=== PATIENT | female | born 1955 | race Caucasian/White ===

== ENCOUNTER 2023-04-21 11:39 | Emergency (ER) | payer BC ==
[~2023-04-21] VITALS: Ht 167.6 cm; Wt 93.4 kg
[2023-04-21 12:31] VITALS: BP 158/76; PULSE 84; RESP 18; O2SAT 98
[2023-04-21] MEDS ORDERED: KETOROLAC 60 MG VIAL (30MG/ML) IM ONE (13:00)
[2023-04-21] MEDS ORDERED: MORPHINE 4 MG SYG IM ONE (13:00)
[2023-04-21] MEDS ORDERED: TRAM50TA4 PO (14:01)
[2023-04-21] MEDS ORDERED: IBUP-2070 PO (14:01)
== END 2023-04-21 14:12 | disposition home or self-care (01) ==
LOC: EDH 11:39
DX: S52.515A Nondisplaced fracture of left radial styloid process, initial encounter for closed fracture (principal); S52.612A Displaced fracture of left ulna styloid process, initial encounter for closed fracture; S05.12XA Contusion of eyeball and orbital tissues, left eye, initial encounter; E78.00 Pure hypercholesterolemia, unspecified; I10 Essential (primary) hypertension; Z90.49 Acquired absence of other specified parts of digestive tract; Z90.710 Acquired absence of both cervix and uterus; Z98.84 Bariatric surgery status; W01.0XXA Fall on same level from slipping, tripping and stumbling without subsequent striking against object, initial encounter; Y92.89 Other specified places as the place of occurrence of the external cause; Y93.01 Activity, walking, marching and hiking; Y99.8 Other external cause status
CPT/HCPCS: 99285; 70450; 73110; 96372 ×2; 70480; J2270; J1885

== ENCOUNTER → 2024-01-31 | Outpatient (CLI) | payer BC ==
[~2024-01-31] MED LIST: IBUP-2070 PO; TRAM50TA4 PO
== END | disposition home or self-care (01) ==
LOC: RAH 12:23
PROVIDERS: ATTEND Internal Medicine
DX: M17.12 Unilateral primary osteoarthritis, left knee (principal)
CPT/HCPCS: 73562

== ENCOUNTER → 2024-02-21 | Outpatient (CLI) | payer OTHER ==
--- NOTE | 2024-02-21 12:07 | HMCIMG ---
CT CORONARY CALCIFICATION SCORING: Anatomic images were reviewed. The calcium score is being generated and reported separately. This report is for the visualized anatomy only. Visualized portions of the lungs are clear. Hilar and mediastinal structures appear normal. Osseous structures are unremarkable. Impression: 1. Negative noncardiac anatomic findings. 2. The calcium score is 320.6 consistent with a moderate degree of calcified plaque. This is 90th percentile for this age patient. CT was performed with one or more following dose reduction techniques: automated exposure control, adjustment of the mA and kv according to patient's size, or use of a iterative reconstruction technique.
== END | disposition home or self-care (01) ==
LOC: RAH 09:49
PROVIDERS: ATTEND Internal Medicine
DX: Z13.6 Encounter for screening for cardiovascular disorders (principal); R93.1 Abnormal findings on diagnostic imaging of heart and coronary circulation; I25.10 Atherosclerotic heart disease of native coronary artery without angina pectoris
CPT/HCPCS: 75571

== ENCOUNTER 2024-10-14 05:53 | Observation (INO) | payer BC, MEDICARE ==
[2024-10-12 10:30] LABS: IMMATURE GRANULOCYTE ABSOLUTE 0.03 K/uL (0-1); NUCLEATED RED BLOOD CELLS 0.0 % (0.0-0.19); PLATELET COUNT (AUTO) 99 K/uL (130-400); RED BLOOD CELL COUNT(AUTO) 3.83 MIL/uL (4.00-5.50); RED CELL DISTRIBUTION WIDTH 12.6 % (11.0-15.5); WHITE BLOOD COUNT (AUTO) 5.0 K/uL (4.8-10.8)
[2024-10-12 10:35] VITALS: BP 144/68; PULSE 59; RESP 13; TEMP 97.4
[2024-10-12 10:39] LABS: CREATININE 0.7 mg/dL (0.5-1.0); GLOMERULAR FILTR. RATE CALC 95.0 mL/min (>90); GLUCOSE,RANDOM 94.0 mg/dL (70-105); SODIUM SERUM 143.0 mmol/L (136-145); UREA NITROGEN, BLOOD 11.0 mg/dL (7-18)
[2024-10-12 10:45] LABS: INR 1.07 (0.85-1.15)
--- NOTE | 2024-10-12 10:50 | NUR ---
RE: IS INITIAL IS INITIAL TEACHING DONE BY RT SAVANNAH DURING PREOP
--- NOTE | 2024-10-12 14:17 | EKG ---
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
--- NOTE | 2024-10-13 11:46 | NUR ---
RE: LABS REPORTED CBC RESULTS TO DR RAE, RECEIVED ORDERS TO TYPE/CROSS 2 UNITS PRBCS FOR PLT OF 99. Addendum: 10/13/24 at 1434 by LIANA HIGH RN RN 2 UNITS PLATELETS NOT RBCS Addendum: 10/13/24 at 1637 by LIANA HIGH RN RN CANCEL/DELETE NOTE
--- NOTE | 2024-10-13 16:12 | NUR ---
RE: LABS REPORTED CBC RESULTS TO DR RAE, RECEIVED ORDERS TO TYPE/CROSS 2 UNITS PRBCS FOR PLT OF 99.
[2024-10-14] VITALS (24 sets, daily range): BP systolic 110–177; BP diastolic 61–91; PULSE 60–78; RESP 14–20; TEMP 96.6–99; O2SAT 96–98
[~2024-10-14] VITALS: Ht 167.6 cm; Wt 91.2 kg
[~2024-10-14 05:53] MED LIST changes: -IBUP-2070 PO; +LOSA50TA64 PO; -TRAM50TA4 PO; +TRAZ-187 PO
[2024-10-14] MEDS: FAMOTIDINE 20MG VIAL IV ONE (06:32)
[2024-10-14] MEDS: GABAPENTIN 300 MG CAPSULE ONE (06:32)
[2024-10-14] MEDS ORDERED: LIDOCAINE PF 100MG/5ML (2%) SYRINGE 5ML ONE (06:53)
[2024-10-14] MEDS: TRANEXAMIC ACID 1000MG/10ML ONE (07:35)
[2024-10-14] MEDS: LACTATED RINGERS 1000ML 1,000 ML IV ONE (07:43)
[2024-10-14] MEDS ORDERED: PoTASSium chl 10% ELIXIR 20MEQ 20 MEQ/15 ML UDCUP PO PRN (08:00)
[2024-10-14] MEDS ORDERED: FERROUS FUMARATE 324 MG TABLET PO PRN (08:00)
[2024-10-14] MEDS: 0.9%NACL 1000ML 1,000 ML IV SCH (08:00)
[2024-10-14] MEDS ORDERED: PoTASSium chloRIDE 20MEQ ER 20 MEQ ERTAB PO PRN (08:00)
[2024-10-14] MEDS ORDERED: CALCIUM CARB 500MG PO PRN (08:00)
[2024-10-14] MEDS ORDERED: HYDROcodone/APAP 5/325 1 TAB TABLET PO PRN (08:00)
[2024-10-14] MEDS ORDERED: GLYCOPYRROLATE 0.2 MG/ML 5 ML VIAL ONE (08:53)
[2024-10-14] MEDS ORDERED: NEOSTIGMINE METHYLSULFATE 1MG/ML IV ONE (08:53)
--- NOTE | 2024-10-14 12:46 | DS ---
Discharge Summary Hospital Course Summary: The patient was admitted to the hospital postoperatively on 10/14/2024 after undergoing left total knee arthroplasty. They did well with routine postoperative pain control. They worked well with physical therapy. They developed some acute blood loss anemia but remained asymptomatic. The hospital course was otherwise uncomplicated. They were subsequently able to be discharged on postoperative day 1 once discharge arrangements were made with home health physical therapy with [facility]. 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 Dressing may be removed 10/16/2024 and left open to air. Showers ok allowing soap and water to run over the wound. Pat dry. Do not submerge wound in tub/pool. Do not apply ointments. Do not apply Betadine. Do not apply peroxide. Ice packs to decrease pain/swelling. Prescriptions have been sent to the pharmacy: *Falls 5/325mg 1-2 tab every 6 hours as needed for severe pain. (please call for refills) Cyclobenzaprine 5mg 1 tab every 8 hours as needed for muscle spasm pain. Gabapentin 100mg 1 tab every 8 hours (may discontinue if drowsy). Colace 100mg 1 tab orally twice a day as needed for constipation. Aspirin 325mg twice a day for 30 days to prevent blood clots. Followup visit scheduled for 11/05/2024 at 10:15 am with [facility]. Home Medications: Active Scripts Hydrocodone/Acetaminophen (Hydrocodon-Acetaminophen 5-325) 5 Mg-325 Mg Tablet, 1-2 TAB PO Q6HPRN PRN for SEVERE PAIN (7-10), #56 TAB 0 Refills Prov:PRIMITIVO RAE MD 10/15/24 Reported Medications Trazodone HCl (Trazodone HCl) 100 Mg Tablet, 100 MG PO HS, TAB 10/12/24 Losartan Potassium (Losartan Potassium) 50 Mg Tablet, 50 MG PO DAILY, TAB 10/12/24 Discontinued Scripts Tramadol Hcl (Tramadol HCl) 50 Mg Tablet, 50 MG PO TIDP PRN for PAIN, #20 TAB 0 Refills Prov:FOUZIA SIDDIQUI MD 04/21/23 Ibuprofen (Ibuprofen) 600 Mg Tablet, 600 MG PO Q6H PRN for PAIN, #40 TAB Prov:FOUZIA SIDDIQUI MD 04/21/23 PRIMITIVO RAE MD Oct 14, 2024 12:46
[2024-10-14] MEDS: HYDROcodone/APAP 5/325 1 TAB TABLET PO PRN ×2 (13:29→22:24)
--- NOTE | 2024-10-14 14:58 | OP ---
Operative Note: DATE OF PROCEDURE: 10/14/24 PREOPERATIVE DIAGNOSIS: Left knee osteoarthritis. POSTOPERATIVE DIAGNOSIS: Left knee osteoarthritis. PROCEDURE PERFORMED: Left knee total knee arthroplasty. SURGEON: Yee Baltazar MD WATER RESOURCE PROJECT MANAGER: Virgil Mantilla and Margaret Justice. ANESTHESIA: General with adductor canal block. ANESTHESIA: JAVA WEB USER INTERFACE DEVELOPER then developed as. ESTIMATED BLOOD LOSS: 50cc. COMPLICATIONS: None. DRAINS: None. SPECIMENS REMOVED: resected bone. Not sent to pathology. IMPLANTS: [employer] Nephew Journey II BCS size 4 Oxinium femur, size 3 tibial base plate, 32 x 7.5 mm patella, 13 mm polyethylene STATEMENT OF MEDICAL NECESSITY: The patient is a 69-year-old female who suffers from left knee osteoarthritis failing conservative management. After discussion of the risks, benefits, and alternatives with the patient, they voluntarily ag edgar to undergo the aforementioned procedure. DESCRIPTION OF PROCEDURE: Patient was properly identified in the preoperative holding area. Surgical site marking was verified and surgery consent reviewed. The patient was then taken to the operating room and placed in supine position on the OR table. After induction of general anesthesia, preoperative antibiotics were given, all bony prominences were well-padded, and a well padded tourniquet was applied but not inflated at this time. The left lower extremity was then prepped and draped in usual sterile fashion. Surgical time out was done verifying correct surgery, side, site, and location to be performed. We then began the procedure by exsanguinating the limb using an Esmarch and inflating the tourniquet to 350 mmHg. At this point, we made an anterior midline incision using a 10 blade, coming down sharply the level of the fascia. Skin flaps were elevated medially and laterally. We then obtained a clean 10 blade and performed a standard medial parapatellar arthrotomy. We excised the infrapatellar fat pad. We performed our soft tissue releases off of the tibia. We transected the ACL and removed the anterior portion of the medial & lateral meniscus. We then brought the knee into hyperflexion with the patella everted. We used our entry reamer to enter the femoral canal. We then placed our intramedullary cutting guide for our distal femoral cutting block. We then performed our distal femoral osteotomy ensuring appropriate rotation and removed the bony wafer. We then removed these pins and block and then used jig 2 to size the distal femur with the after mentioned size found. We then placed our 5-in-1 cutting block in 3 degrees of external rotation and took our 5 cuts ensuring to protect the patellar tendon and the collateral ligaments. We then removed the cutting block and our bony fragments using a curved osteotome. We then placed our PCL retractor subluxating the tibia anteriorly. Using an extra medullary tibial cutting guide, we hung the block for our proximal tibial cut taking 2 mm off the more diseased portion. Prior to pinning this block in place, we ensured appropriate varus/valgus alignment and posterior slope similar to the [place] slope of the patient's knee. We then performed our proximal tibial osteotomy and removed the bony wafer using Bovie electrocautery to release any remaining soft tissue attachments. We then used our tibial sizing paddle and checked once more for varus & valgus alignment and found this to be appropriate. At this point, we pinned our tibial paddle in place. We then removed the PCL retractor and subluxated the tibia posteriorly while we placed our femoral trial component. We then finished preparing the notch with the reamer and box chisel. The notch portion of the trial femoral component was then placed. A posterior stabilized polyethylene, size 9 trial was placed. This was immediately increased up to a size 12 seconds dairy to laxity with varus and valgus stress. The knee was then taken through range of motion and found to have stable full range of motion. We then placed a bump under the ankle and everted the patella to perform our freehand cut of the undersurface the patella. We then sized our patella and reamed to the lug holes for this. We placed our trial patellar component and begin to take the knee through range of motion. The patella had significant lateral tracking so we performed a lateral release. There was still mild lateral tracking and decreased flexion so we elected to use the 7.5 mm thickness patellar component. At this point we began removing our trial components and punched the tibial keel prior to removing our tibial trial component. Final components were opened and cement was mixed on the back table while we injected local cocktail in the posterior capsule. We then thoroughly irrigated out the bone and dried the bony surfaces. We cemented our tibial component in place ensuring to remove excess cement and placed our trial polyethylene. We then cemented our femoral component in place once again taking time to ensure excess cement was removed leg was brought into full extension to help squeeze the excess cement from around the femoral component. We then brought the knee back in a flexion to remove this portion of the cement at this point we placed the ankle in a bump thoroughly irrigated off the patellar component and cemented our patellar component in standard fashion again removing excess cement. While we waited for the cement to cure, we thoroughly irrigated out the wound with normal saline. Once our cement had cured, we took the knee through a range of motion and found full and stable range of motion. We then elected to use the size 13 polyethylene and removed our trial polyethylene. We impacted our final polyethylene component in place in standard fashion and took the knee through a range of motion check once more. This was satisfactory so we began to repair the arthrotomy using #5 Ethibond and #1 Vicryl in interrupted [id number] fashion. Subcutaneous tissue was repaired using 2-0 Vicryl. Running subcuticular 3-0 Monocryl stitch with Dermabond placed over this for the skin. We then applied a foam barrier dressing and a pressure dressing consisting of 4 x 4's fluffs and an Hang wrap. The tourniquet was then deflated. Patient was awakened from anesthesia, and they were taken to the recovery room in stable condition. YEE BALTAZAR MD Oct 14, 2024 14:58
--- NOTE | 2024-10-14 16:15 | NUR ---
Ortho Coordinator: Teaching regarding DVT and pneumonia prevention, pain expectations and pain management. Patient up to chair. B SCD sleeve and machine in room. Incentive spirometer at bedside. Patient return demonstrated proper use of incentive spirometer and foot flexion and extension exercises. Patient able to verbalize frequency of use for incentive spirometer. Pain controlled currently. Encouraged patient to perform self pain assessments every four hours and to provide numeric pain value and type of pain when requesting medicatio. Reviewed pain medication regimen. Patient verbalized understanding. Set expectations for patient to shower tomorrow. Patient verbalized understanding to all instructions. No additional questions or concerns.
--- NOTE | 2024-10-14 16:29 | NUR ---
D/C PLAN CM spoke to patient regarding d/c planning. Patient lives with spouse. Denies having any current home services. States she has a handicapped bathroom with bars and high toilet seat. Reports she has a quad cane for ambulation. Patient states she discussed home health PT with Dr. Baltazar. CM offered in [employer] home health and DME agency choices. CM obtained BETO for any in [facility] home health and DME agencies. Patient declined bedside commode. Requesting DME request for walker be sent to [facility] if they are in network. CM verified with office that they do accept patient's insurance. CM faxed referral to [facility] home health and [facility] for walker. CM to f/u on acceptance. No other needs verbalized. Spouse will be assisting at home when discharged. Addendum: 10/14/24 at 1634 by JORDAN REYES CM Amended: Links added.
[2024-10-14] MEDS: CYCLOBENZAPRINE HCL 10 MG TABLET PO PRN (21:15)
[2024-10-15] VITALS: BP 130/69; PULSE 72; RESP 18; TEMP 98.6
[2024-10-15 04:29] LABS: NUCLEATED RED BLOOD CELLS 0.0 % (0.0-0.19); PLATELET COUNT (AUTO) 83.0 K/uL (130-400); RED BLOOD CELL COUNT(AUTO) 2.98 MIL/uL (4.00-5.50); RED CELL DISTRIBUTION WIDTH 12.5 % (11.0-15.5); WHITE BLOOD COUNT (AUTO) 9.7 K/uL (4.8-10.8)
[2024-10-15 04:47] LABS: CREATININE 0.8 mg/dL (0.5-1.0); GLOMERULAR FILTR. RATE CALC 81.0 mL/min (>90); GLUCOSE,RANDOM 120.0 mg/dL (70-105); SODIUM SERUM 138.0 mmol/L (136-145); UREA NITROGEN, BLOOD 15.0 mg/dL (7-18)
--- NOTE | 2024-10-15 06:38 | NUR ---
CHAIR IN AM PATIENT TRANSFERRED TO CHAIR FOR BREAKFAST. PATIENT TOLERATED TRANSFER WELL. PATIENT DOES NOT COMPLAIN OF PAIN AT THE MOMENT. ICE PACK APPLIED TO LEFT KNEE.
[2024-10-15 08:00] VITALS: BP 161/72; PULSE 72; RESP 18; TEMP 98.6
[2024-10-15 08:06] VITALS: O2SAT 98
--- NOTE | 2024-10-15 08:07 | PN ---
Ortho postop day one. This morning the patient is awake alert and oriented. She is seated outside of bed in a chair resting comfortably alternating her foot on extension and flexion on a footstool. The Hang bandage his already been removed. The dressing is intact to the anterior joint. Ice is currently present to the op-site. The gastrocnemius a soft and nontender. Negative Homans. Reporting adequate pain control. Vital signs have remained stable. Afebrile. Voiding on her own without difficulty. Already passing gas. Laboratory results reviewed. Noted to have a drop in hemoglobin and hematocrit as expected after TKA. Patient currently is asymptomatic. We will continue to observe and address per protocol as necessary. Reinforced incentive spirometry. SCD sleeves currently not on but are present. Ambulated within the confines of her room yesterday with physical therapy and is pending further physical therapy this morning. The anticipated discharge goal for this patient is home health/PT. Assessment: Status post left total knee arthroplasty. Asymptomatic acute postoperative blood loss anemia. Plan: Continue with Dr. Baltazar's TKA protocol and discharge planning. Asymptomatic acute postoperative blood loss anemia addressed per protocol as necessary Vitals/Labs Vital Signs Date Time Temp Pulse Resp B/P (MAP) Pulse Ox O2 Delivery O2 Flow Rate FiO2 10/15/24 00:00 98.6 72 18 130/69 96 Room Air 10/14/24 20:00 0 21 Laboratory Tests 10/15/24 04:19 Medications Current Medications Cefazolin Sodium 2 gm STK-MED ONCE .ROUTE Last administered on 10/14/24at 07:47; Start 10/14/24 at 06:01; Stop 10/14/24 at 06:01; Status DC Lactated Ringer's 1,000 ml @ As Directed STK-MED ONCE IV Last administered on 10/14/24at 07:43; Start 10/14/24 at 06:01; Stop 10/14/24 at 06:02; Status DC Gabapentin 300 mg STK-MED ONCE .ROUTE; Start 10/14/24 at 06:32; Stop 10/14/24 at 06:32; Status DC Acetaminophen 100 ml @ As Directed STK-MED ONCE .ROUTE; Start 10/14/24 at 06:32; Stop 10/14/24 at 06:32; Status DC Famotidine 20 mg STK-MED ONCE IV; Start 10/14/24 at 06:32; Stop 10/14/24 at 06:32; Status DC Ropivacaine 150 mg STK-MED ONCE .ROUTE; Start 10/14/24 at 06:46; Stop 10/14/24 at 06:46; Status DC Ketamine HCl 50 mg STK-MED ONCE .ROUTE; Start 10/14/24 at 06:46; Stop 10/14/24 at 06:47; Status DC Lidocaine HCl 100 mg STK-MED ONCE .ROUTE; Start 10/14/24 at 06:53; Stop 10/14/24 at 06:53; Status DC Propofol 200 mg STK-MED ONCE IV; Start 10/14/24 at 06:53; Stop 10/14/24 at 06:53; Status DC Rocuronium Sundance 50 mg STK-MED ONCE .ROUTE; Start 10/14/24 at 06:53; Stop 10/14/24 at 06:54; Status DC Fentanyl Citrate 100 mcg STK-MED ONCE .ROUTE; Start 10/14/24 at 06:54; Stop 10/14/24 at 06:54; Status DC Tranexamic Acid 1,000 mg STK-MED ONCE .ROUTE Last administered on 10/14/24at 07:35; Start 10/14/24 at 07:14; Stop 10/14/24 at 07:14; Status DC Ketorolac Tromethamine 30 mg STK-MED ONCE .ROUTE Last administered on 10/14/24at 08:30; Start 10/14/24 at 07:25; Stop 10/14/24 at 07:31; Status DC Ropivacaine 150 mg STK-MED ONCE .ROUTE Last administered on 10/14/24at 08:30; Start 10/14/24 at 07:25; Stop 10/14/24 at 07:31; Status DC Ondansetron HCl 4 mg STK-MED ONCE .ROUTE; Start 10/14/24 at 07:35; Stop 10/14/24 at 07:35; Status DC Dexamethasone Sodium Phosphate 10 mg STK-MED ONCE .ROUTE; Start 10/14/24 at 07:35; Stop 10/14/24 at 07:35; Status DC Sodium Chloride 1,000 ml @ 100 mls/hr Q10H IV; Start 10/14/24 at 08:00; Stop 10/15/24 at 07:59; Status DC Polyethylene Glycol 17 gm DAILY PO; Start 10/14/24 at 09:00; Stop 11/13/24 at 08:59 Bisacodyl 10 mg DAILY PRN RC; Start 10/17/24 at 08:00; Stop 11/16/24 at 07:59 Ferrous Fumarate 324 mg DAILY PRN PO; Start 10/14/24 at 08:00; Stop 11/13/24 at 07:59 Ondansetron HCl 4 mg Q6H PRN IVP; Start 10/14/24 at 08:00; Stop 11/13/24 at 07:59 Calcium Carbonate 500 mg Q12H PRN PO; Start 10/14/24 at 08:00; Stop 11/13/24 at 07:59 Diphenhydramine HCl 25 mg Q6H PRN IVP; Start 10/14/24 at 08:00; Stop 11/13/24 at 07:59 Cyclobenzaprine HCl 5 mg Q8H PRN PO Last administered on 10/14/24at 21:15; Start 10/14/24 at 08:00; Stop 11/13/24 at 07:59 Gabapentin 100 mg TID PO Last administered on 10/14/24at 21:11; Start 10/14/24 at 09:00; Stop 11/13/24 at 08:59 Potassium Chloride 100 ml @ 100 mls/hr AD PRN IV; Start 10/14/24 at 08:00; Stop 11/13/24 at 07:59 Potassium Chloride 20 meq AD PRN PO; Start 10/14/24 at 08:00; Stop 11/13/24 at 07:59 Potassium Chloride 20 meq AD PRN PO; Start 10/14/24 at 08:00; Stop 11/13/24 at 07:59 Acetaminophen/ Hydrocodone Bitart Q4H PRN PO; Start 10/14/24 at 08:00; Stop 10/14/24 at 07:53; Status DC Acetaminophen/ Hydrocodone Bitart 1 tab Q4H PRN PO Last administered on 10/14/24at 18:15; Start 10/14/24 at 08:00; Stop 10/19/24 at 07:59 Acetaminophen/ Hydrocodone Bitart 2 tab Q4H PRN PO Last administered on 10/15/24at 07:56; Start 10/14/24 at 08:00; Stop 10/19/24 at 07:59 Rocuronium Sundance 50 mg STK-MED ONCE .ROUTE; Start 10/14/24 at 07:59; Stop 10/14/24 at 08:00; Status DC Dexmedetomidine HCl 200 mcg STK-MED ONCE IV; Start 10/14/24 at 08:06; Stop 10/14/24 at 08:06; Status DC Glycopyrrolate 1 mg STK-MED ONCE .ROUTE; Start 10/14/24 at 08:53; Stop 10/14/24 at 08:54; Status DC Neostigmine Methylsulfate 10 mg STK-MED ONCE IV; Start 10/14/24 at 08:53; Stop 10/14/24 at 08:54; Status DC Fentanyl Citrate 100 mcg STK-MED ONCE .ROUTE Last administered on 10/14/24at 10:19; Start 10/14/24 at 10:16; Stop 10/14/24 at 10:17; Status DC Losartan Potassium 50 mg DAILY PO Last administered on 10/15/24at 07:56; Start 10/15/24 at 09:00; Stop 11/14/24 at 08:59 Trazodone HCl 100 mg HS PO Last administered on 10/14/24at 21:11; Start 10/14/24 at 21:00; Stop 11/13/24 at 20:59 Psyllium Hydrophilic Mucilloid 1 tbs ONCE PO; Start 10/15/24 at 08:30; Stop 11/14/24 at 08:29; Status ALCON SUAZO NP Oct 15, 2024 08:07
--- NOTE | 2024-10-15 08:15 | NUR ---
MEDICATION MIRALAX NOT ADMINISTERED. PATIENT WITH A HISTORY OF IBS, NO COMPLAINTS OF CONSTIPATION AT THIS TIME. HEEL WHEELER FOR DR. RAE ON UNIT WILL ORDER METAMUCIL FOR FIBER SUPPLEMENT.
[2024-10-15] MEDS: PSYLLIUM SEED 1 EACH PACKET PO ONE (08:21)
[2024-10-15 12:00] VITALS: BP 151/67; PULSE 73; RESP 18; TEMP 98.1
--- NOTE | 2024-10-15 13:15 | NUR ---
Ortho Coordinator: Reinforced teaching. Patient in bed. Reports difficult night with pain control. Reviewed pain strategy, agreed on plan. Encouraged patient to continue premedicating prior to physical therapy and periods of high activity once discharged, continue with incentive spirometry until presurgery level of activity achieved, continue with foot flexion and extension exercises and need to hydrate. Prune juice X 2 served, last bowel movement 10/13/2024. Home health process reviewed, questions answered. No additional concerns at this time.
[2024-10-15] MEDS ORDERED: CYCL-309 PO (13:22)
[2024-10-15] MEDS ORDERED: GABA100C PO (13:22)
[2024-10-15] MEDS ORDERED: HYDR-4060 PO (13:22)
[2024-10-15] MEDS ORDERED: DOCU-116 PO (13:22)
[2024-10-15] MEDS ORDERED: ASPI-1012 PO (13:22)
--- NOTE | 2024-10-15 13:30 | NUR ---
Ortho Coordinator: Reinforced teaching. Patient in bed. Daughter at bedside. Patient just completed physical therapy. Pain 09/15. Primary nurse notified.
[2024-10-15] MEDS: LACTULOSE 20 GM/30 ML UDCUP PO ONE (15:21)
[2024-10-15 16:00] VITALS: BP 148/66; PULSE 65; RESP 18; TEMP 98.1
--- NOTE | 2024-10-15 16:50 | NUR ---
[employer] [facility] FAXED MULTIPLE TIMES. EMAILED AND CALLED MULTIPLE TIMES. FINAL CONVERSATION HAS RECEIVED PENDING TO SEE IF APPROVED WILL CALL PATIENT. BENJI HAMEED IN CASE THERE IS A PROBLEM FOR PATIENT SAFETY. YOSEPH #[id number] INSTRUCTIONS GIVEN TO PATIENT. COPY OF LEND FORM IN CHART, PATIENT, AND CM OFFICE. Addendum: 10/15/24 at 1657 by LEONILA FRANZ RN CM Amended: Links added.
--- NOTE | 2024-10-15 17:30 | NUR ---
FLEET ENEMA PATIENT UNABLE TO HAVE BOWEL MOVEMENT. METAMUCIL AND LACTULOSE HAVE BEEN ADMINISTERED. SPOKE WITH DR. BUTCH GOFF TO ADMINISTER FLEET ENEMA TO PATIENT. ENEMA ADMINISTERED WITHOUT COMPLICATIONS. PATIENT REPORTED SMALL BOWEL MOVEMENT.
--- NOTE | 2024-10-15 18:32 | NUR ---
PATIENT REPORT CALLED REPORT TO [facility] SPOKE WITH SANCHEZ WEBER. DRESSING INSTRUCTIONS GIVEN. ALL QUESTIONS ANSWERED.
--- NOTE | 2024-10-15 18:45 | NUR ---
PATIENT DISCHARGED PERIPHERAL IV DISCONTINUED. DISCHARGE INSTRUCTIONS GIVEN. PRESCRIPTIONS FAXED TO PHARMACY. PATIENT AWARE TO F/U WITH DR. RAE. ALL QUESTIONS ANSWERED. PATIENT REPORTS PAIN 4/10. INCISION DRY AND INTACT. BRUISING NOTED TO LATERAL SIDES OF KNEE. PATIENT TAKEN DOWN BY WHEELCHAIR. ALL BELONGINGS SENT WITH PATIENT.
--- NOTE | 2024-10-19 16:40 | HMCIMG ---
EXAM: CR right Knee, 2 View. CLINICAL HISTORY: S COMPARISON: None provided. FINDINGS: BONES: No fracture. No dislocation. No loosening. JOINTS: Knee replacement. SOFT TISSUES: The soft tissues are unremarkable. MISCELLANEOUS: Appears in alignment IMPRESSION: 1. Knee replacement. 2. No fracture. No dislocation. No loosening. 3. Appears in alignment /[place]
== END 2024-10-15 18:39 | disposition home health service (06) ==
LOC: DAH 05:53 → DAHIP 05:54 → 4AH 11:30
PROVIDERS: ADMIT Student in an Organized Health Care Education/Training Program; ATTEND Student in an Organized Health Care Education/Training Program
DX: M17.12 Unilateral primary osteoarthritis, left knee (principal); G89.18 Other acute postprocedural pain; D69.6 Thrombocytopenia, unspecified; D62 Acute posthemorrhagic anemia; I12.9 Hypertensive chronic kidney disease with stage 1 through stage 4 chronic kidney disease, or unspecified chronic kidney disease; N18.2 Chronic kidney disease, stage 2 (mild); E66.9 Obesity, unspecified; Z68.32 Body mass index [BMI] 32.0-32.9, adult; Z79.899 Other long term (current) drug therapy
CPT/HCPCS: 82040; 80048 ×2; 85025; 85610; 85730; 84134; 86140; 36415 ×3; 93005; 87641; 27447; 64447; 86850; 86900; 86901; 86923; 73560; 97161; 97116 ×3; 97530 ×8; 85027; G0378 ×35; A4663; J7120; J3490 ×7; J3010 ×2; J1100; J2003; J2704; J2405; J1885; J2710; J2795 ×2; J0690; C1713 ×2; C1776 ×2; A4649 ×2; A4930 ×2; A6255; A4215; A4223 ×2; A4213; A4222; A4221; A4216

== ENCOUNTER → 2025-03-02 | Outpatient (CLI) | payer MEDICARE ==
[~2025-03-02] MED LIST changes: +ASPI-1012 PO; +CYCL-309 PO; +DOCU-116 PO; +GABA100C PO; +HYDR-4060 PO; +IOHEXOL 350 MG/ML 100ML INFUS..BTL IV ONE
--- NOTE | 2025-03-06 14:04 | CARDIOLOGY ---
RAD REPORT: CORNARY CT ANGIO RADIOLOGY REPORT: CORONARY CT ANGIOGRAPHY DATE: Mar 06, 2025 QUALITY: Excellent CLINICAL HISTORY AND INDICATION: [ a-fib] TECHNIQUE: After obtaining a preliminary production line assembler image, contrast imaging performed on an Aquillon [id number] scanner. A dedicated, limited window, coronary imaging protocol was used, with single breath-hold, retrospective ECG gating, and automated arrhythmia rejection. 100 cc of low osmolar contrast agent: Omnipaque 350 was delivered via a 18-gauge IV catheter in the right antecubital fossa, using a power injector and followed by 60 cc of normal saline bolus as a chaser. Collimated images were reformatted at 0.5 mm intervals, and sent to an offline independent workstation for interpretation, using 3D anatomic reconstructions: Curved multiplanar reconstructions, maximum intensity projections, and multiplanar imaging. No metoprolol was administered prior to scanning due to low baseline heart rate. 0.8 mg SL nitroglycerin was given. CORONARY ARTERY DESCRIPTIONS: The coronary arteries arise in normal position. Left main coronary artery: Normal caliber vessel that bifurcates into the LAD and LCx. No stenosis. Left anterior descending coronary artery: Normal caliber vessel and gives rise to diagonal and septal branches. There is mixed calcified and noncalcified plaque in the mid LAD with 20-30% stenosis. Left circumflex coronary artery: Normal caliber, nondominant and gives rise to a large OM branch. No stenosis. Right coronary artery: Large, dominant vessel giving rise to the PL and PDA branches. No stenosis. CAD-RADs: 2, mild non-obstructive CAD. Thoracic Aorta: Normal diameter. Perla Pollock MD Cardiovascular Disease [facility] PERLA POLLOCK MD Mar 06, 2025 14:04
== END | disposition home or self-care (01) ==
LOC: RAH 08:57
PROVIDERS: ATTEND Internal Medicine Cardiovascular Disease
DX: I25.10 Atherosclerotic heart disease of native coronary artery without angina pectoris (principal); I48.0 Paroxysmal atrial fibrillation
CPT/HCPCS: 75574; Q9967